=== PATIENT | female | born 2005 ===

== ENCOUNTER 2025-07-15 18:33 | Emergency (ER) | payer OTHER, MEDICAID | END 2025-07-15 22:18 | disposition home or self-care (01) | LOC: MW.ED 18:33 | DX: S00.31XA Abrasion of nose, initial encounter (principal); V87.7XXA Person injured in collision between other specified motor vehicles (traffic), initial encounter; Y93.89 Activity, other specified | CPT/HCPCS: 70450; 72125; 99284; A9270; 99283 ==